=== PATIENT | female | born 2000 | race Caucasian/White ===

== ENCOUNTER 2023-03-18 02:19 | Inpatient (IN) | payer MEDICAID, OTHER ==
--- NOTE | 2023-03-18 03:39 | ED ---
General Adult HPI - General Chief complaint: Psychiatric Symptoms Stated complaint: petition mental health Time Seen by Provider: 03/18/23 02:40 Source: patient, police, RN notes reviewed, old records reviewed Mode of arrival: ambulatory Limitations: no limitations - History of Present Illness Initial comments: 23-year-old female presenting for evaluation of depression, suicidal thoughts and hallucinations. Patient was petitioned by local police. She states she has been contemplating cutting her wrists. She denies recent suicide attempt. She states she hears voices in her head which are telling her to "do bad things" - Related Data Allergies Allergy/AdvReac Type Severity Reaction Status Date / Time No Known Allergies Allergy Verified 03/18/23 02:32 Review of Systems ROS Statement: Those systems with pertinent positive or pertinent negative responses have been documented in the HPI. ROS Other: All systems not noted in ROS Statement are negative. Past Medical History Past Medical History: No Reported History History of Any Multi-Drug Resistant Organisms: None Reported Past Surgical History: No Surgical Hx Reported Past Psychological History: No Psychological Hx Reported Smoking Status: Vaper Past Alcohol Use History: None Reported Past Drug Use History: None Reported General Exam Limitations: no limitations General appearance: alert, in no apparent distress Head exam: Present: atraumatic, normocephalic Eye exam: Present: normal appearance, PERRL ENT exam: Present: normal exam Neck exam: Present: normal inspection. Absent: tenderness Respiratory exam: Present: normal lung sounds bilaterally. Absent: respiratory distress, wheezes Cardiovascular Exam: Present: regular rate, normal rhythm GI/Abdominal exam: Present: soft. Absent: distended, tenderness Extremities exam: Present: normal inspection Neurological exam: Present: alert, oriented X3 Psychiatric exam: Present: depressed, flat affect, suicidal ideation Skin exam: Present: warm, dry, intact Course Vital Signs 03/18/23 02:29 Temperature 98.7 F Pulse Rate 93 Respiratory 18 Rate Blood Pressure 124/89 O2 Sat by Pulse 97 Oximetry - Reevaluation(s) Reevaluation #1: 03/18/23 03:39 Cleared for EPS Reevaluation #2: 03/18/23 04:59 Patient has been petitioned and I completed a clinical certification and she will be admitted to this institution. Medical Decision Making - Medical Decision Making Was pt. sent in by a medical professional or institution (Dr., PA, ACCREDITATION MANAGER, urgent care, hospital, or usp...) When possible be specific @ -No Did you speak to anyone other than the patient for history (EMS, parent, family, police, friend...)? What history was obtained from this source @ -No Did you review nursing and triage notes (agree or disagree)? Why? @ -I reviewed and agree with nursing and triage notes Were old charts reviewed (outside hosp., previous admission, EMS record, old EKG, old radiological studies, urgent care reports/EKG's, usp records)? Report findings @ -No old charts were reviewed Differential Diagnosis (chest pain, altered mental status, abdominal pain women, abdominal pain men, vaginal bleeding, weakness, fever, dyspnea, syncope, headache, dizziness, GI bleed, back pain, seizure, CVA, palpatations, mental health, musculoskeletal)? @ Differential Mental Health Depression, anxiety, bipolar, psychosis, schizophrenia, borderline personality, situational depression, adjustment disorder, behavioral disorder, brain tumor, malingering, substance abuse, encephalopathy, medication reaction, dementia, h ypothyroidism, degenerative neurologic disorder, lupus.... This is not meant to be all-inclusive list EKG interpreted by me (3pts min.). @ -As above X-rays interpreted by me (1pt min.). @ -None done CT interpreted by me (1pt min.). @ -None done U/S interpreted by me (1pt. min.). @ -None done What testing was considered but not performed or refused? (CT, X-rays, U/S, labs)? Why? @ -None What meds were considered but not given or refused? Why? @ -None Did you discuss the management of the patient with other professionals (professionals i.e. , PA, ACCREDITATION MANAGER, lab, RT, psych nurse, social services, machine repairer, teacher, banking services officer, major case detective)? Give summary @ -EPS nurse Was smoking cessation discussed for >3mins.? @ -No Was critical care preformed (if so, how long)? @ -No Were there social determinants of health that impacted care today? How? (Homelessness, low income, unemployed, alcoholism, drug addiction, transportation, low edu. Level, literacy, decrease access to med. care, assisted, rehab)? @ -No Was there de-escalation of care discussed even if they declined (Discuss DNR or withdrawal of care, Hospice)? DNR status @ -No What co-morbidities impacted this encounter? (DM, HTN, Smoking, COPD, CAD, Cancer, CVA, ARF, Chemo, Hep., AIDS, mental health diagnosis, sleep apnea, morbid obesity)? @ -Depression Was patient admitted / discharged? Hospital course, mention meds given and route, prescriptions, significant lab abnormalities, going to OR and other pertinent info. @ -Patient medically cleared and evaluated by EPS and will be admitted to this institution for further psychiatric care Undiagnosed new problem with uncertain prognosis? @ -No Drug Therapy requiring intensive monitoring for toxicity (Heparin, Nitro, Insulin, Cardizem)? @ -No Were any procedures done? @ -No Diagnosis/symptom? @ Suicidal ideation, hallucination Acute, or Chronic, or Acute on Chronic? @ -Acute Uncomplicated (without systemic symptoms) or Complicated (systemic symptoms)? @ -default Side effects of treatment? @ -No Exacerbation, Progression, or Severe Exacerbation? @ -No Poses a threat to life or bodily function? How? (Chest pain, [place], [place], pneumonia, PE, COPD, DKA, ARF, appy, cholecystitis, CVA, Diverticulitis, Homicidal, Suicidal, threat to staff... and all critical care pts) @ YES risk of self-harm Disposition Clinical Impression: Depression, Suicidal ideation Disposition: ADMITTED IP TO THIS [facility] Condition: Stable Is patient prescribed a controlled substance at d/c from ED?: No Referrals: None,Stated [Primary Care Provider] - 1-2 days Time of Disposition: 05:00
[2023-03-18 05:22] LABS: Amphetamine Screen,Urine Not Detected (NotDetected); Barbiturate Screen,Urine Not Detected (NotDetected); Benzodiazepines Screen,Urine Not Detected (NotDetected); Cocaine Screen,Urine Not Detected (NotDetected); Methadone Screen, Urine Not Detected (NotDetected); Opiate Screen,Urine Not Detected (NotDetected); Oxycodone Screen, Urine Not Detected (NotDetected); Phencyclidine Screen,Urine Not Detected (NotDetected); Tricyclic Antidepressant,Urine Not Detected (NotDetected); Urn Cannabinoid Scrn Not Detected (NotDetected)
[2023-03-18] MEDS ORDERED: MAG HYDROX/AL HYDROX/SIMETH 30 ML CUP PO PRN (09:57)
[2023-03-18] MEDS ORDERED: MAGNESIUM HYDROXIDE 2,400 MG/10 ML CUP PO PRN (09:57)
[2023-03-18] MEDS ORDERED: LORazepam 1 MG TAB PO PRN (10:00)
[2023-03-18] MEDS ORDERED: LORazepam 2 MG/ML INJ IM PRN (10:00)
[2023-03-18] MEDS ORDERED: HALOPERIDOL LACTATE 5 MG/ML 1 ML VIAL IM PRN (10:01)
[2023-03-18] MEDS ORDERED: haloperidoL 5 MG TAB PO PRN (10:01)
[2023-03-18 11:54] LABS: Appearance,Urine Cloudy (Clear); Bacteria,Urine Rare /hpf; Bilirubin,Urine Negative (Negative); Blood,Urine Small (Negative); Color,Urine Yellow; Glucose,Urine (UA) Negative (Negative); Ketones,Urine Negative (Negative); Leukocyte Esterase,Urine Moderate (Negative); Mucus,Urine Many /hpf; Nitrite,Urine Negative (Negative); Protein,Urine 1+ (Negative); RBC,Urine 3 /hpf (0-5); Specific Gravity,Urine 1.035 (1.001-1.035); Squamous Epithelial Cell,Urine 12 /hpf (0-4); WBC,Urine 21 /hpf (0-5)
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
[2023-03-18] MEDS: SERTRALINE 50 MG TAB PO SCH (14:07)
[2023-03-18] MEDS ORDERED: traZODone HCL 50 MG TAB PO SCH (21:00)
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
[2023-03-19] MEDS ORDERED: NICOTINE 14MG/24HR PATCH TRANSDERM SCH (09:00)
[2023-03-19] MEDS: SERTRALINE 50 MG TAB PO SCH (09:41)
[2023-03-19 10:00] LABS: Basophils # (A) 0.1 k/uL (0-0.2); Basophils % (A) 1 %; Eosinophils # (A) 0.1 k/uL (0-0.7); Eosinophils % (A) 1 %; HCT 40.3 % (34.0-46.0); HGB 12.9 gm/dL (11.4-16.0); Lymphocytes # (A) 2.9 k/uL (1.0-4.8); Lymphocytes % (A) 28 %; MCH 26.2 pg (25.0-35.0); MCHC 32.1 g/dL (31.0-37.0); MCV 81.7 fL (80.0-100.0); Mean Platelet Volume 7.9; Monocytes # (A) 0.4 k/uL (0-1.0); Monocytes % (A) 4 %; Neutrophils # (A) 6.8 k/uL (1.3-7.7); Neutrophils % (A) 65 %; Platelet Count 364 k/uL (150-450); RBC 4.93 m/uL (3.80-5.40); RDW 14.7 % (11.5-15.5); WBC 10.3 k/uL (3.8-10.6)
[2023-03-19 10:14] LABS: ALT 30 U/L (4-34); AST 31 U/L (14-36); African American GFR (CKD) >90 (>60 ml/min/1.73 sqM); Albumin 4.5 g/dL (3.5-5.0); Alkaline Phosphatase 85 U/L (38-126); Anion Gap 10 mmol/L; Blood Urea Nitrogen 15 mg/dL (7-17); Calcium 9.7 mg/dL (8.4-10.2); Carbon Dioxide 25 mmol/L (22-30); Chloride 103 mmol/L (98-107); Glucose 102 mg/dL (74-99); Non-African American GFR(CKD) >90 (>60 ml/min/1.73 sqM); Potassium 4.1 mmol/L (3.5-5.1); Sodium 138 mmol/L (137-145); Total Bilirubin 0.9 mg/dL (0.2-1.3); Total Protein 8.4 g/dL (6.3-8.2)
--- NOTE | 2023-03-19 14:40 | P.PN ---
Progress Note - Text Progress Note Date: 03/19/23 Interval History: Patient was seen today for psychiatric follow-up as patient was laying in bed today. Patient awoke and was directable and agreeable to speak to ad copy writer today. She states that she is doing a bit better with regards to her mood and states that she is feeling less depressed. She claims that her anxiety is also mildly improving since yesterday. She states that the medications made her "stomach tight" after she has been taking it. Head Buyer Tobacco spoke to patient about the side effects of the medications and serotonin levels and patient understood and agreed. She claims that she has not talked to her mother yet and is worried to do so. She was inquiring about possibly going back home. She claims that she has been going to some groups progress feeling tired this morning. States that she has been eating. Continues to be fairly concrete, superficial insight and judgment. At this time patient denies any suicidal or homical ideations, intent or plan. Patient denies any auditory, visual hallucinations and denies any paranoia or delusions. Patient denies any side effects from the medications and has been compliant with meds. Mental Status Exam: General Appearance: Patient appears to be mildly overweight, wearing glasses, stated age is alert, directable, and attempts to cooperate. Patient appears to have improving hygiene and grooming. Behavior: Patient is seated without any agitated behavior. Not Tearful Speech: Patient's speech is fluent and nonpressured. Mood/Affect: Patient reports their mood is depressed and anxious improving mildly, affect is congruent Suicidality/Homicidality: Patient denies having any homicidal ideation intent or plan. Denies any suicidal ideations intent or plan Perceptions: Patient denies any visual hallucinations and denies any auditory hallucinations Though content/process: There is no evidence of any delusional thought content and thought process is linear and goal-directed. [place]. Evasive at times Memory and concentration: AOX3, grossly intact for the purposes of this session Judgment and insight: poor/limited, improving mildly IMPRESSIONS: Major depressive disorder, severe with psychotic features Anxiety disorder unspecified Nicotine dependence PLAN: -Patient is admitted under voluntary status to MHU for stabilization of psychiatric symptoms and safety. Patient has signed adult voluntary form and medication consent and is placed in patient's chart. -Medications : Zoloft 50 mg daily for mood/anxiety, start melatonin 5 mg qhs for insomnia. -Ativan and Haldol PRN for agitation/aggression -NRT - nicotine patch -SW on board for discharge planning. Encourage patient to participate in groups to work on coping skills. patient claims that she is not able to return back to previous residence and would rather go back to live with her parents upon discharge. sw will look into if going back to parents house is an option.
[2023-03-19] MEDS: MELATONIN 5 MG TABLET PO SCH (22:57)
[2023-03-20] MEDS: SERTRALINE 50 MG TAB PO SCH (09:12)
--- NOTE | 2023-03-20 14:43 | P.PN ---
Progress Note - Text Progress Note Date: 03/20/23 Interval History: Patient was seen today for psychiatric follow-up as patient was participating in sitting and activities group today. Patient was directable and appropriately during conversation. She continues to be fairly concrete. She claims that she is doing a bit better with regard to her mood and anxiety. She states that the medications have been doing a bit better for her. We spoke about possibly increasing his dose however patient wants to continue with the same dose at this time. She states that she has not heard from her parents as of yet and does not know if she is allowed back to her parents house upon discharge. She claims that she was able to sleep better last night with the melatonin. Continues to be fairly concrete, superficial insight and judgment. At this time patient denies any suicidal or homical ideations, intent or plan. Patient denies any auditory, visual hallucinations and denies any paranoia or delusions. Patient denies any side effects from the medications and has been compliant with meds. Mental Status Exam: General Appearance: Patient appears to be mildly overweight, wearing glasses, stated age is alert, directable, and attempts to cooperate. Patient appears to have improving hygiene and grooming. Behavior: Patient is seated without any agitated behavior. More cooperative and appropriate today. Speech: Patient's speech is fluent and nonpressured. Mood/Affect: Patient reports their mood is improving mildly, affect is congruent Suicidality/Homicidality: Patient denies having any homicidal ideation intent or plan. Denies any suicidal ideations intent or plan Perceptions: Patient denies any visual hallucinations and denies any auditory hallucinations Though content/process: There is no evidence of any delusional thought content and thought process is linear and goal-directed. [place]. Memory and concentration: AOX3, grossly intact for the purposes of this session Judgment and insight: limited, improving mildly IMPRESSIONS: Major depressive disorder, severe with psychotic features Anxiety disorder unspecified Nicotine dependence PLAN: -Patient is admitted under voluntary status to MHU for stabilization of psychiatric symptoms and safety. Patient has signed adult voluntary form and medication consent and is placed in patient's chart. -Medications : Zoloft 50 mg daily for mood/anxiety, melatonin 5 mg qhs for insomnia. -Ativan and Haldol PRN for agitation/aggression -NRT - nicotine patch -SW on board for discharge planning. Encourage patient to participate in groups to work on coping skills. patient claims that she is not able to return back to previous residence and would rather go back to live with her parents upon discharge. sw will look into if going back to parents house is an option. likely discharge thursday vs thursday back home
[2023-03-20] MEDS: MELATONIN 5 MG TABLET PO SCH (21:53)
[2023-03-20] MEDS ORDERED: NICOTINE GUM (POLACRILEX) 2 MG GUM BUCCAL PRN (22:07)
[2023-03-21] MEDS: SERTRALINE 50 MG TAB PO SCH (08:37)
[2023-03-21] MEDS ORDERED: BENZOCAINE 20 % GEL 11.9 GM TUBE MM ONE (18:50)
[2023-03-21] MEDS: ACETAMINOPHEN TAB 325 MG TAB PO PRN (18:56)
[2023-03-21] MEDS: MELATONIN 5 MG TABLET PO SCH (22:36)
[2023-03-22 06:15] VITALS: BP 123/69; PULSE 95; RESP 16; TEMP 97.9
[2023-03-22] MEDS: SERTRALINE 50 MG TAB PO SCH (08:24)
[2023-03-22] MEDS: ACETAMINOPHEN TAB 325 MG TAB PO PRN (14:52)
--- NOTE | 2023-03-22 16:27 | P.PN ---
Progress Note - Text Progress Note Date: 03/21/23 Interval history: Patient was seen wandering the hallways with a female peer and was directable and agreeable to speak with singer songwriter. She reports her mood is "better", denies problems with sleep or appetite. At this time patient denies any suicidal or homicidal ideation, intent or plan. Denies any auditory or visual hallucinations. Patient denies any side effects from the medications and has been compliant with meds. Mental status exam: General Appearance: Patient appears to be stated age is alert, directable, and cooperative. Behavior: No agitated behavior. Patient is calm and directable Speech: Patient's speech is fluent and non-pressured. Mood/Affect: Mood is improving mildly, affect is congruent and constricted. Suicidality/Homicidality: Patient denies having any suicidal or homicidal ideation intent or plan. Perceptions: Patient denies any auditory or visual hallucinations. Though content/process: There is no evidence of any delusional thought content and thought process is linear and goal-directed. Memory and concentration: AOX3, grossly intact for the purposes of this session Judgment and insight: improving mildly Assessment/Plan: Continue with current diagnosis. Patient continues to meet criteria for inpatient psychiatric admission for symptom stabilization and safety. Patient will be maintained on current psychotropic medication regimen. Monitor for medication compliance and for any psychotropic medication side effects. Will continue to monitor ongoing response to treatment. Encouraged participation in milieu.
[2023-03-22] MEDS ORDERED: IBUPROFEN 200 MG TAB PO PRN (16:29)
--- NOTE | 2023-03-22 16:30 | P.PN ---
Progress Note - Text Progress Note Date: 03/22/23 Interval history: Patient was seen asleep in bed in the middle of the day with lights off, and is agreeable to speak with card writer hand on awakening. She reports her mood is "ok", denies depressed mood, or problems with sleep or appetite. She complains of menstrual cramps. At this time patient denies any suicidal or homicidal ideation, intent or plan. Denies any auditory or visual hallucinations. Patient denies any side effects from the medications and has been compliant with meds. Mental status exam: General Appearance: Patient appears to be stated age is alert, directable, and cooperative. Behavior: No agitated behavior. Patient is calm and directable Speech: Patient's speech is fluent and non-pressured. Mood/Affect: Mood is improving mildly, affect is congruent and constricted. Suicidality/Homicidality: Patient denies having any suicidal or homicidal ideation intent or plan. Perceptions: Patient denies any auditory or visual hallucinations. Though content/process: There is no evidence of any delusional thought content and thought process is linear and goal-directed. Memory and concentration: AOX3, grossly intact for the purposes of this session Judgment and insight: improving mildly Assessment/Plan: Continue with current diagnosis. Patient continues to meet criteria for inpatient psychiatric admission for symptom stabilization and safety. Patient will be maintained on current psychotropic medication regimen. Start Ibuprofen 200 mg Q6H PRN for pain/menstrual cramps. Monitor for medication compliance and for any psychotropic medication side effects. Will continue to monitor ongoing response to treatment. Encouraged participation in milieu.
[2023-03-23] MEDS: MELATONIN 5 MG TABLET PO SCH (01:34)
[2023-03-23] MEDS: SERTRALINE 50 MG TAB PO SCH (08:08)
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
== END 2023-03-23 14:10 | disposition home or self-care (01) | DRG 751 ==
LOC: EC 02:19 → 3MHU 09:53
PROVIDERS: ADMIT Psychiatry & Neurology Psychiatry; ATTEND Psychiatry & Neurology Psychiatry
DX: F33.2 Major depressive disorder, recurrent severe without psychotic features (principal); F41.9 Anxiety disorder, unspecified; Z71.6 Tobacco abuse counseling; F17.290 Nicotine dependence, other tobacco product, uncomplicated; R45.851 Suicidal ideations; Z71.89 Other specified counseling; Z20.822 Contact with and (suspected) exposure to COVID-19; Z28.21 Immunization not carried out because of patient refusal; Z91.51 Personal history of suicidal behavior; G47.00 Insomnia, unspecified; Z56.0 Unemployment, unspecified; Z79.899 Other long term (current) drug therapy
CPT/HCPCS: 80053; 80306; 81001; 81025; 82075; 83036; 84443; 85025; 87635